=== PATIENT | female | born 1990 | race Hispanic/Latino ===

== ENCOUNTER 2017-07-25 11:51 | Emergency (ER) | payer SELFPAY ==
[2017-07-25 12:48] LABS: Urine Blood TRACE (NEG); Urine Glucose NEGATIVE (NEG); Urine Protein NEGATIVE (NEG); Urine Specific Gravity >1.030 (1.005-1.030)
[2017-07-25 13:20] LABS: Urine Bacteria <20 /HPF (<20); Urine Culture Reflex Order NOT NEEDED; Urine Mucus 1+ /HPF (NONE SEEN); Urine RBC <5 /HPF (NONE SEEN)
[2017-07-25 13:32] LABS: Absolute Lymphocytes (CBC) 2.3 K/uL (0.7-4.9); Absolute Monocytes 0.6 K/uL (0.1-1.3); Basophils % 0.9 % (0-1.3); Hematocrit 36.7 % (36.0-45.0); Lymphocytes % 24.5 % (15.3-44.8); MCH 27.6 pg (27.0-35.0); MCV 83.8 fL (80-100); MPV 8.5 fL (7.6-11.3); Monocytes % 6.3 % (3.3-12.3); RBC Red Blood Cell Count 4.39 M/uL (3.86-4.86)
[2017-07-25 13:40] LABS: Bicarbonate 30 mEq/L (21-31); Glucose Level 91 mg/dL (65-120); Lipase 15 U/L (22-51); Potassium 3.7 mEq/L (3.6-5.0); Sodium Level 139 mEq/L (135-145)
[2017-07-25 13:46] LABS: ALT/SGPT 12 IU/L (10-60); AST/SGOT 17 IU/L (10-42); Albumin 3.9 g/dL (3.2-5.5); Alkaline Phosphatase 71 IU/L (42-121); Amylase Level 50 U/L (28-100); BUN Blood Urea Nitrogen 17 mg/dL (6-20); Bilirubin Direct 0.3 mg/dL (0-0.2); Bilirubin Total 2.1 mg/dL (0.3-1.2); Protein, Total 7.1 g/dL (6.0-8.3)
--- NOTE | 2017-07-25 14:50 | RAD REPORT ---
EXAM DESCRIPTION: US - Transvaginal Study Probe - 07/25/2017 2:37 pm CLINICAL HISTORY: Pelvic pain. COMPARISON: 04/05/2016 FINDINGS: The uterus is normal in size, shape and echotexture. The uterus measures 7.0 x 5.0 x 3.9 c m. The endometrial stripe measures 4 mm, normal. Both ovaries are normal in size, shape and echotexture. The right ovary measures 3.3 x 2.1 x 1.7 cm. The left ovary measures 3.5 x 2.1 x 1.8 cm. No ovarian or parovarian lesions. No adnexal masses. Normal Doppler blood flow was demonstrated to both ovaries. IMPRESSION: Unremarkable study.
--- NOTE | 2017-07-25 15:09 | EDPHYS ---
Physician Documentation [facility] Name: Angela Trinidad Age: 26 yrs Sex: Female : 1990 Arrival Date: 07/25/2017 Time: 11:52 Bed 18 Private MD: ED Physician Kory Granados HPI: 07/25 12:58 This 26 yrs old Female presents to ER via Ambulatory with complaints of cp Vaginal Discharge, Pelvic Pain, Vomiting/Diarrhea. 12:58 The patient presents with pelvic pain, that is located in/on the suprapubic area, cp vaginal discharge, that is white discharge. 12:58 Onset: The symptoms/episode began/occurred gradually. Associated signs and symptoms: cp Pertinent positives: diarrhea, vomiting, Pertinent negatives: fever, hematuria. 12:58 The patient is sexually active, reportedly has a single partner. The patient's method cp of control includes nothing. 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 - Social history:: Smoking status: Patient uses tobacco products, smokes one-half pack cigarettes per day. ROS: 13:05 Positive for vaginal discharge, Negative for urinary symptoms, vaginal bleeding. cp 13:05 Eyes: Negative for injury, pain, redness, and discharge, ENT: Negative for injury, cp pain, and discharge. 13:05 Constitutional: Negative for body aches, chills, fever, poor PO intake. 13:05 Cardiovascular: Negative for chest pain, edema, palpitations. 13:05 Respiratory: Negative for cough, shortness of breath, wheezing. 13:05 Abdomen/GI: Positive for abdominal pain, vomiting, diarrhea, of the lower abdomen, Negative for constipation, anorexia, black/tarry stool, rectal bleeding. 13:05 Back: Negative for pain at rest, pain with movement, radiated pain. 13:05 Skin: Negative for cellulitis, rash. 13:05 Neuro: Negative for altered mental status, headache, weakness. 13:05 All other systems are negative. Exam: 14:04 Head/Face: Normocephalic, atraumatic. cp 14:04 Constitutional: The patient appears in no acute distress, alert, awake, non-toxic, well developed, well nourished. 14:04 Eyes: Periorbital structures: appear normal, Conjunctiva: normal, no exudate, no injection, Lids and lashes: appear normal, bilaterally. 14:04 ENT: External ear(s): are unremarkable, Nose: is normal, Mouth: Lips: moist, Oral mucosa: pink and intact, moist, Posterior pharynx: is normal, airway is patent, no erythema, no exudate. 14:04 Chest/axilla: Inspection: normal, Palpation: is normal, no crepitus, no tenderness. 14:04 Cardiovascular: Rate: normal, Rhythm: regular. 14:04 Respiratory: the patient does not display signs of respiratory distress, Respirations: normal, no use of accessory muscles, no retractions, no splinting, no tachypnea, labored breathing, is not present, Breath sounds: are clear throughout, no decreased breath sounds, no stridor, no wheezing. 14:04 Abdomen/GI: Inspection: abdomen appears normal, Bowel sounds: active, all quadrants, Palpation: soft, in all quadrants, mild abdominal tenderness, in the right lower quadrant and left lower quadrant, rebound tenderness, is not appreciated, voluntary guarding, is not appreciated, involuntary guarding, is not appreciated. 14:04 : CVA tenderness, is absent, Pelvic Exam: External exam: is normal, Speculum exam: no bleeding is noted, no cervicitis, os that is closed, bimanual exam reveals cervical motion tenderness, no adnexal tenderness on left, right adnexal tenderness, no adnexal mass on right, no adnexal mass on left, discharge, white, Jeane, tech. Sexual behavior: the patient is sexually active, and reports a single partner. 14:04 Skin: cellulitis, is not appreciated, no rash present. Vital Signs: 12:05 BP 101 / 71; Pulse 72; Resp 14; Temp 98.5(TE); Pulse Ox 98% on R/A; Weight 54.43 kg lk1 (R); Height 5 ft. 0 in. (152.40 cm) (R); Pain 7/10; 13:00 BP 100 / 69; Pulse 71; Resp 18; Pulse Ox 99% on R/A; Pain 2/10; em 14:43 BP 123 / 81; Pulse 92; Resp 15; Pulse Ox 96% on R/A; mh5 15:24 BP 105 / 72; Pulse 86; Resp 18; Pulse Ox 99% on R/A; em 12:05 Body Mass Index 23.44 (54.43 kg, 152.40 cm) lk1 MDM: 12:07 Patient medically screened. cp 13:00 Differential diagnosis: dysmenorrhea, ectopic , endometriosis, ovarian cyst, cp pelvic inflammatory disease, ruptured ectopic . 15:05 Data reviewed: vital signs, nurses notes, lab test result(s), radiologic studies, cp ultrasound, and as a result, I will discharge patient. 15:05 Counseling: I had a detailed discussion with the patient and/or guardian regarding: the cp historical points, exam findings, and any diagnostic results supporting the discharge/admit diagnosis, lab results, radiology results, the need for outpatient follow up, an OB/Gyne specialist, to return to the emergency department if symptoms worsen or persist or if there are any questions or concerns that arise at home. 15:05 Special discussion: Based on the patient's Hx, exam, and Dx evaluation, there is no cp indication for emergent surgery or inpatient Tx. It is understood by the patient/guardian that if the Sx's persist or worsen they need to return immediately for re-evaluation. 07/25 12:40 Order name: Urine Dipstick--Ancillary (enter results); Complete Time: 12:49 bd 07/25 12:49 Interpretation: Normal except: UBLD TRACE; UESTR TRACE. cp 07/25 12:40 Order name: Urine --Ancillary (enter results); Complete Time: 12:49 bd 07/25 12:50 Interpretation: Reviewed. cp 07/25 12:58 Order name: Amylase, Serum; Complete Time: 14:07 cp 07/25 12:58 Order name: Basic Metabolic Panel; Complete Time: 14:07 cp 07/25 14:08 Interpretation: Normal except: GFR 79. cp 07/25 12:58 Order name: CBC with Diff; Complete Time: 13:39 cp 07/25 12:58 Order name: Creatinine for Radiology; Complete Time: 14:07 cp 07/25 12:58 Order name: Hepatic Function; Complete Time: 14:07 cp 07/25 12:58 Order name: Lipase; Complete Time: 14:07 cp 07/25 12:58 Order name: Urine Microscopic Only; Complete Time: 13:39 cp 07/25 12:58 Order name: Test, Serum; Complete Time: 14:07 cp 07/25 12:58 Order name: GC (GONORR/CHLAMYDIA) Probe cp 07/25 12:58 Order name: Wet Prep; Complete Time: 14:52 cp 07/25 14:09 Order name: US Transvaginal Study (Probe); Complete Time: 14:52 cp 07/25 12:58 Order name: IV Saline Lock; Complete Time: 13:31 cp 07/25 12:58 Order name: Labs collected and sent; Complete Time: 13:31 cp 07/25 12:58 Order name: Pelvic Exam Setup; Complete Time: 13:31 cp Administered Medications: 15:24 Drug: Rocephin (cefTRIAXone) 250 mg Route: IM; Site: right deltoid; em 15:43 Follow up: Response: No adverse reaction em 15:24 Drug: Zithromax 1 grams Route: PO; em 15:43 Follow up: Response: No adverse reaction em Disposition: 07/26 13:24 Co-signature as Attending Physician, Kory Granados MD. Disposition: 07/25/17 15:09 Discharged to Home. Impression: Abdominal and pelvic pain. - Condition is Stable. - Discharge Instructions: Pelvic Pain, Female, Abdominal Pain, Women. - Prescriptions for Ibuprofen 800 mg Oral Tablet - take 1 tablet by ORAL route every 8 hours As needed take with food; 30 tablet. Doxycycline Hyclate 100 mg Oral Tablet - take 1 tablet by ORAL route every 12 hours; 20 tablet. Metronidazole 500 mg Oral Tablet - take 1 tablet by ORAL route every 8 hours; 30 tablet. - Work release form, Medication Reconciliation Form, Thank You Letter, Antibiotic Education, Prescription Opioid Use form. - Follow up: Angel Sevilla MD; When: 1 week; Reason: Recheck today's complaints. - Problem is new. - Symptoms have improved. Signatures: Dispatcher [employer] EDMS Christopher Chawla, DANCE COSTUME DESIGNER DANCE COSTUME DESIGNER em Santino Solis, PA PA cp Cindy Doss, RN RN lk1 Kory Granados MD MD Corrections: (The following items were deleted from the chart) 10:55 04/01 13:05 Constitutional: Negative for body aches, chills, fever, poor PO intake, cp cp 07/26 13:05 Eyes: Negative for injury, pain, redness, and discharge, cp cp
--- NOTE | 2017-07-25 15:09 | ER ---
Nurse's Notes [facility] Name: Angela Trinidad Age: 26 yrs Sex: Female : 1990 Arrival Date: 07/25/2017 Time: 11:52 Bed 18 Private MD: Diagnosis: Abdominal and pelvic pain Presentation: 07/25 12:03 Presenting complaint: Patient states: "I have been having really bad abdominal pain lk1 where I had my . I am 11 days late on my period, but I had 2 negative tests. I have vomiting and diarrhea and a weird vaginal discharge that I have never seen before.". Transition of care: patient was not received from another setting of care. Onset of symptoms was July 14, 2017. Care prior to arrival: None. 12:03 Method Of Arrival: Ambulatory lk1 12:03 Acuity: MAYELIN 3 lk1 Triage Assessment: 12:05 General: Appears in no apparent distress. Behavior is calm, cooperative, appropriate lk1 for age. Pain: Complains of pain in suprapubic area Pain currently is 7 out of 10 on a pain scale. GI: Reports diarrhea, nausea, vomiting. 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 - Social history:: Smoking status: Patient uses tobacco products, smokes one-half pack cigarettes per day. Screenin:35 Abuse screen: Denies threats or abuse. Nutritional screening: No deficits noted. em Tuberculosis screening: No symptoms or risk factors identified. Fall Risk None identified. Assessment: 12:32 General: Appears in no apparent distress. comfortable, Behavior is calm, cooperative. em Pain: Complains of pain in suprapubic area Pain currently is 6 out of 10 on a pain scale. Quality of pain is described as crampy, Pain began. Neuro: Level of Consciousness is awake, alert, obeys commands, Oriented to person, place, time, situation. Cardiovascular: Capillary refill < 3 seconds Patient's skin is warm and dry. Respiratory: Airway is patent Respiratory effort is even, unlabored, Respiratory pattern is regular, symmetrical. GI: Abdomen is flat, Bowel sounds present X 4 quads. Reports bloating, cramping, diarrhea, nausea, vomiting. : No signs and/or symptoms were reported regarding the genitourinary system. EENT: No signs and/or symptoms were reported regarding the EENT system. Derm: Skin is intact, Skin is pink, warm \\T\\ dry. Musculoskeletal: Range of motion: intact in all extremities. 12:35 General: The previous assessment is accurate, call light remains within reach. . ss 13:30 Reassessment: Patient appears in no apparent distress at this time. Patient and/or em family updated on plan of care and expected duration. Pain level reassessed. Patient is alert, oriented x 3, equal unlabored respirations, skin warm/dry/pink. 14:59 Reassessment: Patient appears in no apparent distress at this time. Patient and/or em family updated on plan of care and expected duration. Pain level reassessed. Patient is alert, oriented x 3, equal unlabored respirations, skin warm/dry/pink. Vital Signs: 12:05 BP 101 / 71; Pulse 72; Resp 14; Temp 98.5(TE); Pulse Ox 98% on R/A; Weight 54.43 kg lk1 (R); Height 5 ft. 0 in. (152.40 cm) (R); Pain 7/10; 13:00 BP 100 / 69; Pulse 71; Resp 18; Pulse Ox 99% on R/A; Pain 2/10; em 14:43 BP 123 / 81; Pulse 92; Resp 15; Pulse Ox 96% on R/A; mh5 15:24 BP 105 / 72; Pulse 86; Resp 18; Pulse Ox 99% on R/A; em 12:05 Body Mass Index 23.44 (54.43 kg, 152.40 cm) lk1 ED Course: 11:52 Patient arrived in ED. as 12:04 Triage completed. lk1 12:06 Arm band placed on left wrist. lk1 12:07 Santino Solis PA is PHCP. cp 12:07 Kory Granados MD is Attending Physician. cp 12:18 Christopher Chawla LVN is Primary Nurse. em 12:38 Urine collected: clean catch specimen, clear. 5 12:47 Urine --Ancillary (enter results) Sent. mh5 12:47 Urine Dipstick--Ancillary (enter results) Sent. [facility] 13:35 Patient has correct armband on for positive identification. Placed in gown. Bed in low em position. Call light in reach. Side rails up X2. 13:35 No provider procedures requiring assistance completed. em 14:21 Patient taken to ultrasound. lc3 14:38 US Transvaginal Study (Probe) In Process Unspecified. EDMS 14:41 Assist provider with pelvic exam: Set up pelvic tray. Specimens sent to lab. Patient 5 tolerated well. 14:42 Initial lab(s) drawn, by me, sent to lab. Inserted saline lock: 22 gauge in right [facility] antecubital area, using aseptic technique. Blood collected. 15:08 Angel Sevilla MD is Referral Physician. cp 15:42 IV discontinued, intact, bleeding controlled, No redness/swelling at site. Pressure em dressing applied. Administered Medications: 15:24 Drug: Rocephin (cefTRIAXone) 250 mg Route: IM; Site: right deltoid; em 15:43 Follow up: Response: No adverse reaction em 15:24 Drug: Zithromax 1 grams Route: PO; em 15:43 Follow up: Response: No adverse reaction em Outcome: 15:09 Discharge ordered by MD. cp 15:42 Discharged to home ambulatory. em 15:42 Condition: good 15:42 Discharge instructions given to patient, Instructed on discharge instructions, follow up and referral plans. medication usage, Demonstrated understanding of instructions, follow-up care, medications, Prescriptions given X 3. 15:43 Patient left the ED. em Signatures: Dispatcher [employer] EDNM Christopher Chawla, RECOVERY ROOM RN RECOVERY ROOM RN em Komal Aparicio Shelby, RN RN Santino Pacheco PA PA cp Alexa Witt Leah, RN RN lk1 Dania Aparicio [facility] Corrections: (The following items were deleted from the chart) 14:59 13:30 Reassessment: Patient appears in no apparent distress at this time. Patient is em alert, oriented x 3, equal unlabored respirations, skin warm/dry/pink. Patient is alert/active/playful, equal unlabored respirations, skin warm/dry/pink. em
[2017-07-25] MEDS ORDERED: AZITHROMYCIN 250 MG TAB ONE (15:29)
[2017-07-25] MEDS ORDERED: CEFTRIAXONE 250 MG/VIAL ONE (15:30)
[2017-07-25 15:49] VITALS: TEMP 98.5
[2017-07-25 15:52] VITALS: BP 105/72; O2SAT 99
[2017-07-27 06:49] LABS: C.trachomatis RNA,TMA Not Detected (Not Detected)
== END 2017-07-25 15:43 | disposition home or self-care (01) ==
LOC: ER 11:51
DX: R10.2 Pelvic and perineal pain (principal); F17.210 Nicotine dependence, cigarettes, uncomplicated; Z88.8 Allergy status to other drugs, medicaments and biological substances
CPT/HCPCS: 36415; 76830; 80048; 80076; 81003; 81015; 81025; 82150; 83690; 84703; 85025; 87210; 87490; 87590; 96372; 99284; J0696

== ENCOUNTER 2017-08-27 15:28 | Emergency (ER) | payer OTHER, SELFPAY ==
[2017-08-27 16:28] LABS: Urine Blood TRACE (NEG); Urine Glucose NEGATIVE (NEG); Urine Protein 3+ (NEG); Urine Specific Gravity 1.025 (1.005-1.030)
[2017-08-27 16:45] LABS: Potassium 4.1 mEq/L (3.6-5.0)
[2017-08-27 16:46] LABS: Absolute Lymphocytes (CBC) 2.4 K/uL (0.7-4.9); Absolute Monocytes 0.9 K/uL (0.1-1.3); Absolute Neutrophil 9.1 K/uL (1.8-8.0); Basophils % 0.6 % (0-1.3); Eosinophils % 2.2 % (0-4.4); Hematocrit 38.4 % (36.0-45.0); Lymphocytes % 18.7 % (15.3-44.8); MCH 27.5 pg (27.0-35.0); MCV 83.7 fL (80-100); MPV 8.5 fL (7.6-11.3); Monocytes % 7.4 % (3.3-12.3); RBC Red Blood Cell Count 4.59 M/uL (3.86-4.86)
[2017-08-27] MEDS ORDERED: NA CHLORIDE 0.9% 1,000 ML ONE (16:48)
--- NOTE | 2017-08-27 17:28 | RAD REPORT ---
EXAM DESCRIPTION: US - Transvaginal Study Probe - 08/27/2017 5:14 pm CLINICAL HISTORY: Pelvic pain COMPARISON: none FINDINGS: The uterus measures 8 x 4 x 4 cm. A fibroid is not seen. The endometrial stripe measures 9 millimeters. Nabothian cysts are present within the cervix. The ovaries are normal in size and echotexture. No significant free fluid is seen. IMPRESSION: Unremarkable pelvic ultrasound
--- NOTE | 2017-08-27 17:35 | ER ---
Nurse's Notes [facility] Name: Angela Trinidad Age: 26 yrs Sex: Female : 1990 Arrival Date: 08/27/2017 Time: 15:30 Bed 28 Private MD: Diagnosis: Urinary tract infection, site not specified Presentation: 08/27 15:35 Presenting complaint: Patient states: suprapubic cramping and white vaginal discharge x ss 4 weeks. "I'm 49 days late for my period, and I've been having mood swings, but all the tests I've taken are negative or they just don't say anything.". Transition of care: patient was not received from another setting of care. Onset of symptoms was July 30, 2017. Initial Sepsis Screen: Does the patient meet any 2 criteria? No. Patient's initial sepsis screen is negative. Does the patient have a suspected source of infection? No. Patient's initial sepsis screen is negative. Care prior to arrival: None. 15:35 Method Of Arrival: Ambulatory ss 15:35 Acuity: MAYELIN 3 ss SIDEHAND: 15:38 LMP 06/19/2017 ss Historical: - Allergies: 15:38 Bentyl; ss - PMHx: 15:38 Anemia; Anxiety; hypotension; drug use when teenager; ss - PSHx: 15:38 Cholecystectomy; ; ss - Immunization history:: Adult Immunizations up to date. - Social history:: Smoking status: Patient uses tobacco products, smokes one-half pack cigarettes per day. Screenin:45 Abuse screen: Denies threats or abuse. Nutritional screening: No deficits noted. tl3 Tuberculosis screening: No symptoms or risk factors identified. Fall Risk None identified. Assessment: 15:45 Reassessment: pt reports that last cycle was 45 days ago, her breast are tender and she tl3 has a mucus discharge. General: Appears in no apparent distress. comfortable, well groomed, well developed, well nourished, Behavior is calm, cooperative, appropriate for age. Pain: Complains of pain in suprapubic area. Neuro: No deficits noted. Level of Consciousness is awake, alert, obeys commands, Oriented to person, place, time, situation, Appropriate for age. Cardiovascular: No deficits noted. Heart tones S1 S2 present Capillary refill < 3 seconds in bilateral fingers. Respiratory: Airway is patent Trachea midline Respiratory effort is even, unlabored, Respiratory pattern is regular, symmetrical, Breath sounds are clear bilaterally. GI: Bowel sounds present X 4 quads. Abd is soft and non tender. : No signs and/or symptoms were reported regarding the genitourinary system. EENT: No signs and/or symptoms were reported regarding the EENT system. Derm: No signs and/or symptoms reported regarding the dermatologic system. Musculoskeletal: No signs and/or symptoms reported regarding the musculoskeletal system. Vital Signs: 15:38 BP 110 / 75; Pulse 89; Resp 14; Temp 98.6(TE); Pulse Ox 99% on R/A; Weight 54.43 kg; ss Height 4 ft. 11 in. (149.86 cm); Pain 5/10; 18:02 BP 108 / 74; Pulse 68; Resp 16; Pulse Ox 100% on R/A; tl3 15:38 Body Mass Index 24.24 (54.43 kg, 149.86 cm) ss ED Course: 15:30 Patient arrived in ED. sb2 15:33 Maria Elena Tenorio FNP-C is PHCP. kb 15:33 Delgado Parker MD is Attending Physician. kb 15:37 Triage completed. ss 15:38 Arm band placed on right wrist. ss 15:45 Patient has correct armband on for positive identification. Bed in low position. tl3 15:45 No provider procedures requiring assistance completed. Inserted saline lock: 22 gauge tl3 in right antecubital area, using aseptic technique. 16:17 Ese Morales, RN is Primary Nurse. tl3 16:58 Ultrasound completed. Patient tolerated well. sg3 17:14 US Transvaginal Study (Probe) In Process Unspecified. EDMS 18:02 IV discontinued, intact, bleeding controlled, No redness/swelling at site. Pressure tl3 dressing applied. Administered Medications: 17:19 Drug: NS 0.9% 1000 ml Route: IV; Rate: 1000 ml; Site: right antecubital; Delivery: tl3 Primary tubing; 18:01 Follow up: IV Status: Completed infusion; IV Intake: 1000ml tl3 18:00 Drug: Macrobid 100 mg Route: PO; tl3 18:00 Follow up: Response: No adverse reaction; Medication administered at discharge. tl3 Intake: 18:01 IV: 1000ml; Total: 1000ml. tl3 Outcome: 17:35 Discharge ordered by MD. [place] 18:02 Discharged to home ambulatory. tl3 18:02 Condition: good 18:02 Discharge instructions given to patient, Instructed on discharge instructions, follow up and referral plans. medication usage, Demonstrated understanding of instructions, follow-up care, medications, Prescriptions given X 1, stressed fluid intake, follow up with PCP, return to ED with any worsening S/S 18:03 Patient left the ED. tl3 Signatures: Dispatcher [employer] EDMS Maria Elena Tenorio, HYDROLOGY PROFESSOR-C HYDROLOGY PROFESSOR-Carolyn Banks, RN RN Maricruz Tirado 3 Jesenia Hung2 Ese Morales, RN RN tl3
--- NOTE | 2017-08-27 17:35 | EDPHYS ---
Physician Documentation [facility] Name: Angela Trinidad Age: 26 yrs Sex: Female : 1990 Arrival Date: 08/27/2017 Time: 15:30 Bed 28 Private MD: ED Physician Delgado Parker HPI: 08/27 15:53 This 26 yrs old Female presents to ER via Ambulatory with complaints of kb Abdominal Pain, LMP 06/19/17. 15:53 The patient presents with abdominal pain in the lower abdomen. Onset: The kb symptoms/episode began/occurred 4 week(s) ago. The symptoms do not radiate. Associated signs and symptoms: Pertinent positives: vaginal discharge. The symptoms are described as crampy. Modifying factors: The symptoms are alleviated by nothing, the symptoms are aggravated by pressure. Severity of pain: At its worst the pain was mild moderate in the emergency department the pain is unchanged. The patient has not experienced similar symptoms in the past. The patient has been recently seen at the [facility] Emergency Department, a couple of weeks ago, for similar complaints labs were performed, an ultrasound was performed. 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 - Social history:: Smoking status: Patient uses tobacco products, smokes one-half pack cigarettes per day. ROS: 15:55 Constitutional: Negative for fever, chills, and weight loss, ENT: Negative for injury, kb pain, and discharge, Neck: Negative for injury, pain, and swelling, Cardiovascular: Negative for chest pain, palpitations, and edema, Respiratory: Negative for shortness of breath, cough, wheezing, and pleuritic chest pain, Back: Negative for injury and pain, MS/Extremity: Negative for injury and deformity, Skin: Negative for injury, rash, and discoloration, Neuro: Negative for headache, weakness, numbness, tingling, and seizure. 15:55 Abdomen/GI: Positive for abdominal pain. 15:55 : Positive for vaginal discharge. Exam: 15:54 Constitutional: This is a well developed, well nourished patient who is awake, alert, kb and in no acute distress. Head/Face: Normocephalic, atraumatic. ENT: Nares patent. No nasal discharge, no septal abnormalities noted. Tympanic membranes are normal and external auditory canals are clear. Oropharynx with no redness, swelling, or masses, exudates, or evidence of obstruction, uvula midline. Mucous membranes moist. Neck: Trachea midline, no thyromegaly or masses palpated, and no cervical lymphadenopathy. Supple, full range of motion without nuchal rigidity, or vertebral point tenderness. No Meningismus. Chest/axilla: Normal chest wall appearance and motion. Nontender with no deformity. No lesions are appreciated. Cardiovascular: Regular rate and rhythm with a normal S1 and S2. No gallops, murmurs, or rubs. Normal PMI, no JVD. No pulse deficits. Respiratory: Lungs have equal breath sounds bilaterally, clear to auscultation and percussion. No rales, rhonchi or wheezes noted. No increased work of breathing, no retractions or nasal flaring. Skin: Warm, dry with normal turgor. Normal color with no rashes, no lesions, and no evidence of cellulitis. MS/ Extremity: Pulses equal, no cyanosis. Neurovascular intact. Full, normal range of motion. Neuro: Awake and alert, GCS 15, oriented to person, place, time, and situation. Cranial nerves II-XII grossly intact. Motor strength 5/5 in all extremities. Sensory grossly intact. Cerebellar exam normal. Normal gait. 15:54 Abdomen/GI: Inspection: abdomen appears normal, Bowel sounds: normal, in all quadrants, Palpation: soft, in all quadrants, mild abdominal tenderness, in the suprapubic area, right lower quadrant and left lower quadrant. Vital Signs: 15:38 BP 110 / 75; Pulse 89; Resp 14; Temp 98.6(TE); Pulse Ox 99% on R/A; Weight 54.43 kg; ss Height 4 ft. 11 in. (149.86 cm); Pain 5/10; 18:02 BP 108 / 74; Pulse 68; Resp 16; Pulse Ox 100% on R/A; tl3 15:38 Body Mass Index 24.24 (54.43 kg, 149.86 cm) MDM: 15:38 Patient medically screened. kb 15:55 Data reviewed: vital signs, nurses notes. Data interpreted: Pulse oximetry: on room air kb is 99 %. Interpretation: normal. 17:35 Counseling: I had a detailed discussion with the patient and/or guardian regarding: the kb historical points, exam findings, and any diagnostic results supporting the discharge/admit diagnosis, lab results, radiology results, the need for outpatient follow up, an OB/Gyne specialist, to return to the emergency department if symptoms worsen or persist or if there are any questions or concerns that arise at home. 08/27 15:38 Order name: CBC with Diff; Complete Time: 16:49 kb 08/27 15:38 Order name: Basic Metabolic Panel; Complete Time: 16:49 kb 08/27 16:18 Order name: Urine Dipstick--Ancillary (enter results); Complete Time: 16:29 eb 08/27 16:18 Order name: Urine --Ancillary (enter results); Complete Time: 16:29 eb 08/27 16:30 Order name: US Transvaginal Study (Probe); Complete Time: 17:34 kb 08/27 15:38 Order name: Urine Test (obtain specimen); Complete Time: 16:18 kb 08/27 15:38 Order name: Urine Dipstick-Ancillary (obtain specimen); Complete Time: 16:18 kb Administered Medications: 17:19 Drug: NS 0.9% 1000 ml Route: IV; Rate: 1000 ml; Site: right antecubital; Delivery: tl3 Primary tubing; 18:01 Follow up: IV Status: Completed infusion; IV Intake: 1000ml tl3 18:00 Drug: Macrobid 100 mg Route: PO; tl3 18:00 Follow up: Response: No adverse reaction; Medication administered at discharge. tl3 Disposition: 18:13 Co-signature as Attending Physician, Delgado Parker MD. rn Disposition: 08/27/17 17:35 Discharged to Home. Impression: Urinary tract infection, site not specified. - Condition is Stable. - Discharge Instructions: Urinary Tract Infection, [id number]. - Prescriptions for Macrobid 100 mg Oral Capsule - take 1 capsule by ORAL route every 12 hours for 7 days; 14 capsule. - Medication Reconciliation Form, Thank You Letter, Antibiotic Education, Prescription Opioid Use form. - Follow up: Emergency Department; When: As needed; Reason: Worsening of condition. Follow up: Private Physician; When: 2 - 3 days; Reason: Recheck today's complaints, Continuance of care, Re-evaluation by your physician. Signatures: Dispatcher [employer] EDMaria Elena Pond, ANA HEADLEY-Delgado Astorga MD MD rn Smirch, Shelby, RN RN ss Lowrey, Tammy, RN RN tl3 Corrections: (The following items were deleted from the chart) 18:03 17:35 08/27/2017 17:35 Discharged to Home. Impression: Urinary tract infection, site tl3 not specified. Condition is Stable. Forms are Medication Reconciliation Form, Thank You Letter, Antibiotic Education, Prescription Opioid Use. Follow up: Emergency Department; When: As needed; Reason: Worsening of condition. Follow up: Private Physician; When: 2 - 3 days; Reason: Recheck today's complaints, Continuance of care, Re-evaluation by your physician. kb
[2017-08-27] MEDS ORDERED: NITROFURAN MACRO 100 MG CAP PO ONE (17:55)
[2017-08-27 18:08] VITALS: TEMP 98.6
[2017-08-27 18:09] VITALS: BP 108/74; O2SAT 100
== END 2017-08-27 18:03 | disposition home or self-care (01) ==
LOC: ER 15:28
DX: N39.0 Urinary tract infection, site not specified (principal); F17.210 Nicotine dependence, cigarettes, uncomplicated; Z88.8 Allergy status to other drugs, medicaments and biological substances
CPT/HCPCS: 36415; 76830; 80048; 81003; 81025; 85025; 96360; 99284; J7030

== ENCOUNTER 2017-11-07 21:07 | Emergency (ER) | payer OTHER ==
[2017-11-07 21:32] LABS: Urine Specific Gravity 1.025 (1.005-1.030)
[2017-11-07 21:33] LABS: Urine Blood NEGATIVE (NEG); Urine Glucose NEGATIVE (NEG); Urine Protein NEGATIVE (NEG); Urine Specific Gravity 1.025 (1.005-1.030)
[2017-11-07 22:09] LABS: Absolute Lymphocytes (CBC) 2.2 K/uL (0.7-4.9); Absolute Monocytes 0.6 K/uL (0.1-1.3); Absolute Neutrophil 7.5 K/uL (1.8-8.0); Basophils % 0.4 % (0-1.3); Eosinophils % 0.7 % (0-4.4); Hematocrit 34.6 % (36.0-45.0); Lymphocytes % 21.2 % (15.3-44.8); MCH 28.9 pg (27.0-35.0); MPV 8.2 fL (7.6-11.3); Monocytes % 5.7 % (3.3-12.3); RBC Red Blood Cell Count 4.16 M/uL (3.86-4.86)
[2017-11-07 22:28] LABS: BUN Blood Urea Nitrogen 7 mg/dL (7-18); Bicarbonate 28 mmol/L (21-32); Glucose Level 89 mg/dL (74-106); Potassium 3.5 mmol/L (3.5-5.1); Sodium Level 140 mmol/L (136-145)
[2017-11-07 22:32] LABS: Urine Mucus 3+ /HPF (NONE SEEN)
[2017-11-07] MEDS ORDERED: ACETAMINOPHEN 500 MG TAB ONE (22:32)
[2017-11-07 22:36] LABS: Urine Amorphous Sediment 2+ /HPF (NONE SEEN); Urine Bacteria <20 /HPF (<20); Urine Culture Reflex Order NOT NEEDED; Urine RBC <5 /HPF (NONE SEEN)
[2017-11-07 22:40] LABS: HCG, Quantitative 29100 mIU/mL (1-3)
--- NOTE | 2017-11-07 23:15 | EDPHYS ---
Physician Documentation [facility] Name: Angela Trinidad Age: 27 yrs Sex: Female : 1990 Arrival Date: 11/07/2017 Time: 21:08 Bed 25 Private MD: ED Physician Lam Clark HPI: 11/07 22:00 This 27 yrs old Female presents to ER via Ambulatory with complaints of pm1 Vaginal Bleeding - 3Months Preg. 22:00 The patient presents with vaginal bleeding that is spotting. Onset: The pm1 symptoms/episode began/occurred 2 month(s) ago. Modifying factors: The symptoms are alleviated by nothing, the symptoms are aggravated by nothing. Associated signs and symptoms: Pertinent positives: cramping, vaginal bleeding, Pertinent negatives: diarrhea, dysuria, fever, nausea, vaginal discharge, vomiting. Severity of symptoms: in the emergency department the symptoms are unchanged. Onset: The symptoms/episode began/occurred. The patient has been recently seen by a physician: Patient with ultrasound by Dr. Morfin 1 week ago. Patient reports on and off vaginal spotting for the past 2 months. 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 - Social history:: Smoking status: Patient/guardian denies using tobacco, Patient/guardian denies using alcohol, street drugs, IV drugs. - Ebola Screening: : No symptoms or risks identified at this time. ROS: 22:00 Positive for vaginal bleeding, Negative for burning with urination, vaginal pm1 discharge. 22:00 Constitutional: Negative for fever, chills, and weight loss, Eyes: Negative for injury, pain, redness, and discharge, ENT: Negative for injury, pain, and discharge, Neck: Negative for injury, pain, and swelling, Cardiovascular: Negative for chest pain, palpitations, and edema, Respiratory: Negative for shortness of breath, cough, wheezing, and pleuritic chest pain, Back: Negative for injury and pain. 22:00 : Negative for injury, bleeding, discharge, and swelling, MS/Extremity: Negative for injury and deformity, Skin: Negative for injury, rash, and discoloration, Neuro: Negative for headache, weakness, numbness, tingling, and seizure. 22:00 Abdomen/GI: Positive for abdominal cramps, Negative for abdominal pain, nausea, vomiting, and diarrhea. Exam: 22:00 Constitutional: This is a well developed, well nourished patient who is awake, alert, pm1 and in no acute distress. Head/Face: Normocephalic, atraumatic. Eyes: Pupils equal round and reactive to light, extra-ocular motions intact. Lids and lashes normal. Conjunctiva and sclera are non-icteric and not injected. Cornea within normal limits. Periorbital areas with no swelling, redness, or edema. ENT: Nares patent. No nasal discharge, no septal abnormalities noted. Tympanic membranes are normal and external auditory canals are clear. Oropharynx with no redness, swelling, or masses, exudates, or evidence of obstruction, uvula midline. Mucous membranes moist. Neck: Trachea midline, no thyromegaly or masses palpated, and no cervical lymphadenopathy. Supple, full range of motion without nuchal rigidity, or vertebral point tenderness. No Meningismus. Chest/axilla: Normal chest wall appearance and motion. Nontender with no deformity. No lesions are appreciated. Cardiovascular: Regular rate and rhythm with a normal S1 and S2. No gallops, murmurs, or rubs. No pulse deficits. Respiratory: Lungs have equal breath sounds bilaterally, clear to auscultation and percussion. No rales, rhonchi or wheezes noted. No increased work of breathing, no retractions or nasal flaring. Abdomen/GI: Soft, non-tender, with normal bowel sounds. No distension or tympany. No guarding or rebound. No evidence of tenderness throughout. Back: No spinal tenderness. No costovertebral tenderness. Full range of motion. Skin: Warm, dry with normal turgor. Normal color with no rashes, no lesions, and no evidence of cellulitis. MS/ Extremity: Pulses equal, no cyanosis. Neurovascular intact. Full, normal range of motion. 22:00 Neuro: Orientation: is normal, Motor: is normal, moves all fours. Vital Signs: 21:27 BP 117 / 79; Pulse 88; Resp 18; Pulse Ox 100% on R/A; Weight 56.7 kg; Height 5 ft. 0 mg2 in. (152.40 cm); Pain 9/10; 22:04 BP 106 / 66; Pulse 85; Resp 18; Pulse Ox 100% on R/A; Pain 8/10; mg2 23:30 BP 107 / 77; Pulse 80; Resp 18; Pulse Ox 100% on R/A; Pain 0/10; mg2 21:27 Body Mass Index 24.41 (56.70 kg, 152.40 cm) mg2 MDM: 21:14 Patient medically screened. pm1 23:14 Data reviewed: vital signs. Data interpreted: Pulse oximetry: on room air is 100 %. pm1 Interpretation: normal. Counseling: I had a detailed discussion with the patient and/or guardian regarding: the historical points, exam findings, and any diagnostic results supporting the discharge/admit diagnosis, lab results, radiology results, the need for outpatient follow up, for definitive care, an OB/Gyne specialist, to return to the emergency department if symptoms worsen or persist or if there are any questions or concerns that arise at home. 11/07 21:18 Order name: Quantitative Hcg; Complete Time: 22:57 pm1 11/07 21:18 Order name: Abo/rh Typing; Complete Time: 22:32 pm1 11/07 21:18 Order name: Basic Metabolic Panel; Complete Time: 22:57 pm1 11/07 21:18 Order name: CBC with Diff; Complete Time: 22:32 pm1 11/07 21:19 Order name: Urine Microscopic Only; Complete Time: 22:57 pm1 11/07 21:25 Order name: Urine Dipstick--Ancillary (enter results); Complete Time: 21:41 rg2 11/07 21:18 Order name: Urine Test (obtain specimen); Complete Time: 21:30 pm1 11/07 21:18 Order name: IV Saline Lock; Complete Time: 21:55 pm1 11/07 21:18 Order name: Labs collected and sent; Complete Time: 21:55 pm1 11/07 21:18 Order name: NPO; Complete Time: 21:55 pm1 11/07 21:26 Order name: Urine --Ancillary (enter results); Complete Time: 21:41 rg2 11/07 21:45 Order name: 1St Trimest Single 1St Fetus EDAK 11/07 21:18 Order name: Urine Dipstick-Ancillary (obtain specimen); Complete Time: 21:30 pm1 Administered Medications: 23:22 Drug: Tylenol 500 mg Route: PO; mg2 23:28 Follow up: Response: No adverse reaction; Pain is decreased mg2 Disposition: 11/08 04:26 Co-signature as Attending Physician, Lam Clark MD. ma2 Disposition: 11/07/17 23:15 Discharged to Home. Impression: Threatened . - Condition is Stable. - Discharge Instructions: Threatened Miscarriage, Pelvic Rest. - Medication Reconciliation Form, Thank You Letter form. - Follow up: Emergency Department; When: As needed; Reason: Worsening of condition. Follow up: Private Physician; When: 2 - 3 days; Reason: Recheck today's complaints, Continuance of care, Re-evaluation by your physician. - Problem is new. - Symptoms have improved. Signatures: Dispatcher [employer] [facility] [place] Jagdeep Saba, DIESEL MAINTENANCE TECHNICIAN DIESEL MAINTENANCE TECHNICIAN pm1 Lam Clark MD MD ma2 Rudy Melgar, RN RN mg2 Corrections: (The following items were deleted from the chart) 11/07 21:45 21:19 Transvaginal Ob+US.RAD.BRZ ordered. [facility] 23:30 23:15 11/07/2017 23:15 Discharged to Home. Impression: Threatened . Condition mg2 is Stable. Forms are Medication Reconciliation Form, Thank You Letter, Antibiotic Education, Prescription Opioid Use. Follow up: Emergency Department; When: As needed; Reason: Worsening of condition. Follow up: Private Physician; When: 2 - 3 days; Reason: Recheck today's complaints, Continuance of care, Re-evaluation by your physician. Problem is new. Symptoms have improved. pm1
--- NOTE | 2017-11-07 23:15 | ER ---
Nurse's Notes [facility] Name: Angela Trinidad Age: 27 yrs Sex: Female : 1990 Arrival Date: 11/07/2017 Time: 21:08 Bed 25 Private MD: Diagnosis: Threatened Presentation: 11/07 21:24 Presenting complaint: Patient states: she is having on and off vaginal mg2 bleeding/spotting for 2 months already. also complains of abdominal and back pain with nausea and vomiting 3 times today. Transition of care: patient was not received from another setting of care. Onset of symptoms was October 2017. Risk Assessment: Do you want to hurt yourself or someone else? Patient reports no desire to harm self or others. Initial Sepsis Screen: Does the patient meet any 2 criteria? No. Patient's initial sepsis screen is negative. Does the patient have a suspected source of infection? No. Patient's initial sepsis screen is negative. Care prior to arrival: None. 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 - Social history:: Smoking status: Patient/guardian denies using tobacco, Patient/guardian denies using alcohol, street drugs, IV drugs. - Ebola Screening: : No symptoms or risks identified at this time. Screenin:34 Abuse screen: Denies threats or abuse. Denies injuries from another. Nutritional mg2 screening: No deficits noted. Tuberculosis screening: No symptoms or risk factors identified. Fall Risk None identified. Assessment: 21:35 General: Appears in no apparent distress. comfortable, Behavior is calm, cooperative. mg2 Pain: Complains of pain in back and abdomen Pain does not radiate. Pain currently is 9 out of 10 on a pain scale. Quality of pain is described as aching, Pain began today Is intermittent. Neuro: Level of Consciousness is awake, alert, obeys commands, Oriented to person, place, time. Cardiovascular: Capillary refill < 3 seconds Patient's skin is warm and dry. Respiratory: Airway is patent Respiratory effort is even, unlabored, Respiratory pattern is regular, symmetrical. GI: Reports lower abdominal pain, vomiting. EENT: No signs and/or symptoms were reported regarding the EENT system. Derm: Skin is intact, Skin is pink, warm \T\ dry. normal. Musculoskeletal: No signs and/or symptoms reported regarding the musculoskeletal system. Vital Signs: 21:27 BP 117 / 79; Pulse 88; Resp 18; Pulse Ox 100% on R/A; Weight 56.7 kg; Height 5 ft. 0 mg2 in. (152.40 cm); Pain 9/10; 22:04 BP 106 / 66; Pulse 85; Resp 18; Pulse Ox 100% on R/A; Pain 8/10; mg2 23:30 BP 107 / 77; Pulse 80; Resp 18; Pulse Ox 100% on R/A; Pain 0/10; mg2 21:27 Body Mass Index 24.41 (56.70 kg, 152.40 cm) mg2 ED Course: 21:08 Patient arrived in ED. ds1 21:14 Jagdeep Saba NP is PHCP. pm1 21:14 Lam Clark MD is Attending Physician. pm1 21:16 Rudy Melgar RN is Primary Nurse. mg2 21:26 Triage completed. mg2 21:28 Arm band placed on. mg2 21:45 1St Trimest Single 1St Fetus In Process Unspecified. EDMS 21:55 No provider procedures requiring assistance completed. Inserted saline lock: 20 gauge mg2 in left antecubital area, using aseptic technique. Blood collected. 23:28 IV discontinued, intact, bleeding controlled, No redness/swelling at site. Pressure mg2 dressing applied. 23:29 Patient has correct armband on for positive identification. Side rails up X 1. mg2 Administered Medications: 23:22 Drug: Tylenol 500 mg Route: PO; mg2 23:28 Follow up: Response: No adverse reaction; Pain is decreased mg2 Outcome: 23:15 Discharge ordered by . pm1 23:29 Discharged to home ambulatory, with family. mg2 23:29 Condition: stable 23:29 Discharge instructions given to patient, family, Instructed on discharge instructions, follow up and referral plans. Demonstrated understanding of instructions, follow-up care. 23:30 Patient left the ED. mg2 Signatures: Dispatcher [employer] EDNila Penn ds1 Jagdeep Saba, WIRE SAWYER WIRE SAWYER pm1 Rudy Melgar, RN RN mg2
[2017-11-07 23:33] VITALS: O2SAT 100
[2017-11-07 23:36] VITALS: BP 107/77
--- NOTE | 2017-11-08 08:11 | RAD REPORT ---
EXAM DESCRIPTION: US - 1St Trimest Single 1St Fetus - 11/07/2017 9:46 pm CLINICAL HISTORY: VAGINAL BLEEDING COMPARISON: No comparisons FINDINGS: A single gestational sac is seen within the uterus. Within the sac is a single fetus with crown-rump length measuring 7.4 cm corresponding to 13 weeks 3 days gestational age. SNEHAL 05/12/2018. Cardiac activity is normal measuring 161 BPM. Placenta is anterior, grade 0. No evidence of placental abruption or placenta previa. No perigestatio nal bleed. Maternal adnexa showed no worrisome finding. IMPRESSION: Single live early intrauterine gestation as detailed above.
== END 2017-11-07 23:30 | disposition home or self-care (01) ==
LOC: ER 21:07
DX: O20.0 Threatened abortion (principal); Z3A.00 Weeks of gestation of pregnancy not specified; Z88.8 Allergy status to other drugs, medicaments and biological substances
CPT/HCPCS: 36415; 76801; 80048; 81003; 81015; 81025; 84702; 85025; 86900; 86901; 99284

== ENCOUNTER 2017-11-21 13:21 | Emergency (ER) | payer OTHER ==
[2017-11-21 14:02] LABS: Absolute Lymphocytes (CBC) 1.6 K/uL (0.7-4.9); Absolute Monocytes 0.5 K/uL (0.1-1.3); Absolute Neutrophil 6.8 K/uL (1.8-8.0); Basophils % 0.5 % (0-1.3); Eosinophils % 1.2 % (0-4.4); Hematocrit 29.9 % (36.0-45.0); Lymphocytes % 17.7 % (15.3-44.8); MCV 83.8 fL (80-100); MPV 8.4 fL (7.6-11.3); Monocytes % 5.7 % (3.3-12.3); RBC Red Blood Cell Count 3.57 M/uL (3.86-4.86)
[2017-11-21 14:23] LABS: ALT/SGPT 19 U/L (12-78); AST/SGOT 17 U/L (15-37); Albumin 2.8 g/dL (3.4-5.0); Alkaline Phosphatase 58 U/L (45-117); BUN Blood Urea Nitrogen 7 mg/dL (7-18); Bicarbonate 26 mmol/L (21-32); Bilirubin Total 0.9 mg/dL (0.2-1.0); Glucose Level 85 mg/dL (74-106); Magnesium 1.9 mg/dL (1.8-2.4); Potassium 3.4 mmol/L (3.5-5.1); Protein, Total 6.4 g/dL (6.4-8.2); Sodium Level 140 mmol/L (136-145)
[2017-11-21] MEDS ORDERED: ACETAMINOPHEN 325 MG TABLET ONE (14:40)
--- NOTE | 2017-11-21 14:51 | EDPHYS ---
Physician Documentation [facility] Name: Angela Trinidad Age: 27 yrs Sex: Female : 1990 Arrival Date: 11/21/2017 Time: 13:23 Bed 7 Private MD: ED Physician Joesph Kong HPI: 11/21 13:27 This 27 yrs old Female presents to ER via Unassigned with complaints of ps1 seizure like activity. 13:27 called to vehicle outside of the ED. Patient having generalized shaking and not ps1 responding to questions. This appeared intentional and c/w PNES. Patient was brought to room and confronted patients behavior which she ceased and started speaking in full sentences and demonstrated no AMS. She is [address] Morfin in [place]. She is alert and oriented at this time, no post ictal phase. . 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 - Social history:: Smoking status: Patient uses tobacco products, smokes one-half pack cigarettes per day. - Ebola Screening: : No symptoms or risks identified at this time. ROS: 13:27 Unable to obtain ROS due to patient being uncooperative. ps1 Exam: 13:27 Constitutional: This is a well developed, well nourished patient who is awake, alert, ps1 and in no acute distress. Head/Face: Normocephalic, atraumatic. Chest/axilla: Normal chest wall appearance and motion. Nontender with no deformity. No lesions are appreciated. Cardiovascular: Regular rate and rhythm. No gallops, murmurs, or rubs. Normal PMI, no JVD. No pulse deficits. Respiratory: Lungs have equal breath sounds bilaterally, clear to auscultation and percussion. No rales, rhonchi or wheezes noted. No increased work of breathing, no retractions or nasal flaring. Abdomen/GI: Soft, non-tender, with normal bowel sounds. No distension or tympany. No guarding or rebound. No evidence of tenderness throughout. Skin: Warm, dry with normal turgor. Normal color with no rashes, no lesions, and no evidence of cellulitis. MS/ Extremity: Pulses equal, no cyanosis. Neurovascular intact. Full, normal range of motion. 13:27 Neuro: patient without typical seizure movements. No gaze preference, crossing midline. No figure four pointing and responded to direction. . Vital Signs: 13:30 BP 98 / 57; Pulse 77; Resp 14; Temp 99.1; Pulse Ox 97% ; Weight 57.15 kg; Height 5 ft. sv 0 in. (152.40 cm); Pain 5/10; 14:32 BP 93 / 70; Pulse 80; Resp 16; Pulse Ox 98% ; sv 15:00 BP 108 / 73; Pulse 77; Resp 16; Pulse Ox 99% ; sv 13:30 Body Mass Index 24.61 (57.15 kg, 152.40 cm) sv MDM: 13:27 Data reviewed: vital signs, nurses notes. ps1 13:33 Patient medically screened. ps1 14:45 Counseling: I had a detailed discussion with the patient and/or guardian regarding: the ps1 historical points, exam findings, and any diagnostic results supporting the discharge/admit diagnosis, lab results, the need for outpatient follow up, an OB/Gyne specialist. Special discussion: I discussed with the patient/guardian in detail that at this point there is no indication for admission to the hospital. It is understood, however, that if the symptoms persist or worsen the patient needs to return immediately for re-evaluation. 11/21 13:33 Order name: CBC with Diff; Complete Time: 14:13 ps1 11/21 13:33 Order name: CMP; Complete Time: 14:24 ps1 11/21 13:33 Order name: UA MICROSCOPIC ps1 11/21 13:33 Order name: Magnesium; Complete Time: 14:24 ps1 11/21 13:33 Order name: Lactate; Complete Time: 14:18 ps1 11/21 14:47 Order name: Urine Dipstick--Ancillary (enter results) bd 11/21 13:41 Order name: IV Start; Complete Time: 14:03 sv 11/21 13:41 Order name: Labs collected and sent; Complete Time: 14:03 sv 11/21 14:47 Order name: Urine --Ancillary (enter results) bd Administered Medications: 14:46 Drug: Tylenol 650 mg Route: PO; sv 14:58 Follow up: Response: No adverse reaction sv Disposition: 11/21/17 14:50 Discharged to Home. Impression: Psychogenic Non-Epileptic Seizure. - Condition is Stable. - Discharge Instructions: Nonepileptic Seizures. - Medication Reconciliation Form, Thank You Letter, Antibiotic Education, Prescription Opioid Use form. - Follow up: Private Physician; When: Upon discharge from the Emergency Department; Reason: Further diagnostic work-up, Recheck today's complaints, Re-evaluation by your physician. Follow up: Emergency Department; When: As needed; Reason: If symptoms return. - Problem is new. - Symptoms have improved. Signatures: Dispatcher [employer] Do Reilly RN RN Joesph Horn MD MD ps1 Corrections: (The following items were deleted from the chart) 15:01 14:50 11/21/2017 14:50 Discharged to Home. Impression: Psychogenic Non-Epileptic sv Seizure. Condition is Stable. Forms are Medication Reconciliation Form, Thank You Letter, Antibiotic Education, Prescription Opioid Use. Follow up: Private Physician; When: Upon discharge from the Emergency Department; Reason: Further diagnostic work-up, Recheck today's complaints, Re-evaluation by your physician. Follow up: Emergency Department; When: As needed; Reason: If symptoms return. Problem is new. Symptoms have improved. ps1
--- NOTE | 2017-11-21 14:51 | ER ---
Nurse's Notes [facility] Emergency Department Name: Angela Trinidad Age: 27 yrs Sex: Female : 1990 Arrival Date: 11/21/2017 Time: 13:23 Bed 7 Private MD: Diagnosis: Psychogenic Non-Epileptic Seizure Presentation: 11/21 13:22 Presenting complaint: Patient states: Pt was unresponsive when brought back by Carrie CODY sv by wheelchair. Pt was able to do minimal transfer from the wheelchair to the stretcher. Pt taken out of her shirt to get changed and connected to the monitor and pt was more alert and talking. Pt stated lower abd pain and that she was 3 months . Pt reports hx of seizures but takes no medications. Transition of care: patient was not received from another setting of care. Onset of symptoms was November 21, 2017. Risk Assessment: Do you want to hurt yourself or someone else? Patient reports no desire to harm self or others. Initial Sepsis Screen: Does the patient meet any 2 criteria? No. Patient's initial sepsis screen is negative. Does the patient have a suspected source of infection? No. Patient's initial sepsis screen is negative. Care prior to arrival: None. 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 - Social history:: Smoking status: Patient uses tobacco products, smokes one-half pack cigarettes per day. - Ebola Screening: : No symptoms or risks identified at this time. Screenin:40 Abuse screen: Denies threats or abuse. Denies injuries from another. Nutritional sv screening: No deficits noted. Tuberculosis screening: No symptoms or risk factors identified. Fall Risk None identified. Assessment: 13:50 General: Appears in no apparent distress. uncomfortable, Behavior is calm, cooperative, sv appropriate for age. Pain: Complains of pain in right lower quadrant and left lower quadrant Pain currently is 5 out of 10 on a pain scale. Quality of pain is described as crampy, Is intermittent. Neuro: Level of Consciousness is awake, alert, obeys commands, Oriented to person, place, time, situation, Moves all extremities. Full function Speech is normal. Cardiovascular: Patient's skin is warm and dry. Pulses are 3+ in right radial artery and left radial artery Rhythm is sinus rhythm. Respiratory: Respiratory effort is even, unlabored, Respiratory pattern is regular, symmetrical. GI: Abdomen is round Abd is soft X 4 quads Abdomen is tender to palpation in right lower quadrant and left lower quadrant. Derm: Skin is normal. Musculoskeletal: Range of motion: intact in all extremities. 14:37 Reassessment: Patient appears in no apparent distress at this time. No changes from sv previously documented assessment. Patient and/or family updated on plan of care and expected duration. Pain level reassessed. Patient is alert, oriented x 3, equal unlabored respirations, skin warm/dry/pink. 14:59 Reassessment: Patient appears in no apparent distress at this time. No changes from sv previously documented assessment. Patient and/or family updated on plan of care and expected duration. Pain level reassessed. Patient is alert, oriented x 3, equal unlabored respirations, skin warm/dry/pink. Vital Signs: 13:30 BP 98 / 57; Pulse 77; Resp 14; Temp 99.1; Pulse Ox 97% ; Weight 57.15 kg; Height 5 ft. sv 0 in. (152.40 cm); Pain 5/10; 14:32 BP 93 / 70; Pulse 80; Resp 16; Pulse Ox 98% ; sv 15:00 BP 108 / 73; Pulse 77; Resp 16; Pulse Ox 99% ; sv 13:30 Body Mass Index 24.61 (57.15 kg, 152.40 cm) sv ED Course: 13:23 Patient arrived in ED. iw 13:26 Joesph Kong MD is Attending Physician. ps1 13:29 Do Condon, ESCOBAR is Primary Nurse. sv 13:30 Patient has correct armband on for positive identification. Placed in gown. Bed in low sv position. Call light in reach. Side rails up X2. air sampling and monitoring on. Pulse ox on. NIBP on. Door closed. Head of bed elevated. 13:37 Triage completed. sv 13:40 Arm band placed on right wrist. sv 13:55 Initial lab(s) drawn, by me, sent to lab. Inserted saline lock: 20 gauge in right sv antecubital area, using aseptic technique. Blood collected. Flushed right antecubital with 5 ml normal saline. 15:01 No provider procedures requiring assistance completed. IV discontinued, intact, sv bleeding controlled, No redness/swelling at site. Pressure dressing applied. Administered Medications: 14:46 Drug: Tylenol 650 mg Route: PO; sv 14:58 Follow up: Response: No adverse reaction sv Outcome: 14:50 Discharge ordered by . ps1 15:00 Discharged to home via wheelchair, with family, Pt sent up to L\T\D for evaluation sv 15:00 Condition: stable 15:00 Discharge instructions given to patient, Instructed on discharge instructions, follow up and referral plans. Demonstrated understanding of instructions, follow-up care. 15:01 Patient left the ED. sv Signatures: Do Condon RN RN sv Williams, Irene, RN RN iw Joesph Kong MD MD ps1
[2017-11-21 15:01] LABS: Urine Blood TRACE (NEG); Urine Glucose NEGATIVE (NEG); Urine Protein NEGATIVE (NEG)
[2017-11-21 15:01] LABS: Urine Bacteria 20-50 /HPF (<20); Urine Culture Reflex Order NOT NEEDED; Urine Mucus 3+ /HPF (NONE SEEN)
[2017-11-21 15:07] VITALS: TEMP 99.1
[2017-11-21 15:09] VITALS: BP 108/73; O2SAT 99
== END 2017-11-21 15:01 | disposition home or self-care (01) ==
LOC: ER 13:21
DX: G40.409 Other generalized epilepsy and epileptic syndromes, not intractable, without status epilepticus (principal); I95.9 Hypotension, unspecified; F17.210 Nicotine dependence, cigarettes, uncomplicated; Z88.8 Allergy status to other drugs, medicaments and biological substances
CPT/HCPCS: 36415; 80053; 81003; 81015; 81025; 83605; 83735; 85025; 99284

== ENCOUNTER 2020-11-25 16:01 | Emergency (ER) | payer OTHER, SELFPAY ==
--- OUTSIDE RECORDS SUMMARY | 2020-11-25 16:04 | XMS REPORT | Continuity of Care Document ---
:[address] [facility] t Address [address] [place] [address] Care Team Providers Name Role Phone PCP Primary Care Physician Unavailable Donnie GERONIMOP Attending Clinician Doctor Unassigned, Name Attending Clinician Unavailable Earnest HEADLEY, Erick Attending Clinician Payers Payer Name Policy Type Policy Number Effective Date Expiration Date S ource Advance Directives Directive Decision Effective Date Termination Date Comments Sour ce Yes N/A [facility] Problems Condition Condition Condition Status Onset Resolution Last Treating Co mments Source Name Details Category Date Date Treatment Clinician Date Problem Condition [facility] Allergies, Adverse Reactions, Alerts Allergy Allergy Status Severity Reaction(s) Onset Inactive Treating Comm ents Source Name Type Date Date Clinician dicyclom DA Active [place] 2020- [facility] [place] 00:00: [address] dicyclom DA Active [place] [facility] 3[facility]05 [place] 00:00: [address] No Known DA Active U 2021-0 [facility] 1[facility] [place] 00:[place]: [facility] No Known DA Active U 2019- [facility] Allergie 2-03 [place] 00:[place]: [facility] No Known DA Active U 2018- [facility] 1[facility] [place] [facility] No Known DA Active U 2014- [facility] 0-01 [place] 00:[place]: [facility] Social History Social Habit Start Date Stop Date Quantity Comments Source Sex Assigned At 1990 [address] 00:00:00 00:00:00 [place] Smoking Status Start Date Stop Date Source Unknown if ever smoked [facility] Medications Ordered Filled Start Stop Current Ordering Indication Dosage Frequency Signature Comments Components Source Medication Medication Date Date Medication? Clinician (SIG) Name Name Acetaminoph No 1 CARMEN U en/Codeine 8-[address] Phosphate 11:38: Elizabe (Tylenol 00 #3) 1 Each TAB Amoxicillin No 500mg GIULIANA TU (Amoxil) 8-[address] 500 Mg CAP 11:38: Elizabe 00 th Ibuprofen 0 No 600mg CHRISTU (Motrin) 8-[address] 600 Mg TAB 11:38: Elizabe 00 th Vital Signs Vital Name Observation Time Observation Value Comments Source Body Temperature 2019-12-11 11:48:00 97.9 [degF] [facility] [place] Heart Rate 2019-12-11 11:48:00 94 /min [facility] [place] Respiratory rate 2019-12-11 11:48:00 18 /min [facility] [place] BP Systolic 2019-12-11 11:48:00 87 mm[Hg] [facility] [place] BP Diastolic 2019-12-11 11:48:00 61 mm[Hg] [facility] [place] Weight 2019-12-11 11:05:00 124.56 [lb_av] [facility] [place] BMI (Body Mass 2019-12-11 11:05:00 25.2 kg/m2 [facility] St. Index) [place] Heart Rate 2019-12-11 11:03:00 94 /min [facility] [place] Respiratory rate 2019-12-11 11:03:00 18 /min [facility] [place] BP Systolic 2019-12-11 11:03:00 87 mm[Hg] [facility] [place] BP Diastolic 2019-12-11 11:03:00 61 mm[Hg] [facility] [place] Procedures This patient has no known procedures. Plan of Care Planned Activity Planned Date Details Comments Source Goal Patient referral [code GIULIANA PARKER [place] = [id number] ] Instructions Dental Pain (DC) [facility] St . [place] Encounters Start End Encounter Admission Attending Care Care Encounter Source Date/Time Date/Time Type Type Clinicians Facility Department ID 2020-11-11 2020-11-11 Emergency [facility] [id number] [id number] 11:57:00 14:18:00 [place] [id number] [place] [id number] [place] [id number] 2020-11-11 2020-11-11 Orders Doctor ED 1.2.840.114 [id number] 00:00:00 00:00:00 Only Unassigned, SHERIDAN [id number] [place] [address]686 [id number] [id number] 2020-10-25 2020-10-25 Emergency [place], [facility] 1.2.840.114 [id number] 13:58:00 14:43:00 Trevor Villa [id number]2.686 [place] [id number] 2019-12-11 2019-12-11 Departed MILLI VEGA [id number] CHRISTU 11:17:00 11:54:[address] [facility] Amanda e Results Test Description Test Time Test Comments Results Result [facility] e Comments - XR TIBIA/FIBULA 2020-08-11 2 V LT 18:19:00 [facility] : 1990 Sex: F FAX: ShainaJeffrey HEADLEY [phone] [place]: St: REG Patient Name: JENI ROBERT Unit No: [id number] EXAMS: CPT CODE: [id number] XR TIBIA/FIBULA 2 [place] [address] Location code:C3 EXAM: - XR ANKLE 3 + V LT, - XR FOOT 3 + V LT, - XR TIBIA/FIBULA 2 V LT HISTORY: 29 years -old Female with fall diffuse pain lateral COMPARISON: None TECHNIQUE: AP, lateral, and oblique views of the left foot and ankle are submitted. AP and lateral views of the left tibia and fibula are also submitted. FINDINGS: BONES: No evidence of acute fracture or dislocation. No evidence of a bony lesion. JOINTS:The joint spaces are maintained. SOFT TISSUES: The soft tissues are unremarkable in appearance. IMPRESSION: No evidence of acute fracture or dislocation. at 1819 Reported and signed by: Dominick Young M.D. CC: Jeffrey Merritt Dictated Date/Time: 08/11/2020 (1818)Technologist: Yash Donato Transcribed Date/Time: 08/11/2020 (1818) By: [email or web address] Orig Print D/T: S: 08/11/2020 (1821) [facility] Mattie NAME: JENI ROBERT [address] [place] [address] PHYS: HUVAD - Huval,Jeffrey REAL ESTATE TEACHERHonorhealth Rehabilitation HospitalChignik, [place] [address] : 1990 AGE: 29 SEX: F LOC: ANA PHONE #: [phone] EXAM DATE: 08/11/2020 STATUS: REG ER FAX #: [phone] RAD NO: DC Dt: PAGE 1 Signed Report - XR FOOT 3 + V LT 2020-08-11 18:19:00 [facility] : 1990 Sex: F FAX: Jeffrey Merritt [employer] TE[employer]ER [phone] [place]: E St: REG Patient Name: JENI ROBERT Unit No: [id number] EXAMS: CPT CODE: [id number] XR FOOT 3 + V LT [address] Location code:C3 EXAM: - XR ANKLE 3 + V LT, - XR FOOT 3 + V LT, - XR TIBIA/FIBULA 2 V LT HISTORY: 29 years -old Female with fall diffuse pain lateral COMPARISON: None TECHNIQUE: AP, lateral, and oblique views of the left foot and ankle are submitted. AP and lateral views of the left tibia and fibula are also submitted. FINDINGS: BONES: No evidence of acute fracture or dislocation. No evidence of a bony lesion. JOINTS:The joint spaces are maintained. SOFT TISSUES: The soft tissues are unremarkable in appearance. IMPRESSION: No evidence of acute fracture or dislocation. at 1819 Reported and signed by: Dominick Young M.D. CC: Jeffrey Merritt Dictated Date/Time: 08/11/2020 (1818)Technologist: Yash Donato Transcribed Date/Time: 08/11/2020 (1818) By: [email or web address] Orig Print D/T: S: 08/11/2020 (1821) [facility] [place] NAME: JENI ROBERT [address] [place] [address] PHYS: Jeffrey [place], [place] [address] : 1990 AGE: 29 SEX: F LOC: ANA PHONE #: [phone] EXAM DATE: 08/11/2020 STATUS: REG ER FAX #: [phone] RAD NO: DC Dt: PAGE 1 Signed Report - XR ANKLE 3 + V 2020-08-11 LT 18:19:00 [facility] : 1990 Sex: F FAX: Jeffrey Merritt [phone] [place]: E St: REG Patient Name: JENI ROBERT Unit No: [id number] EXAMS: CPT CODE: [id number] XR ANKLE 3 + V LT [address] Location code:C3 EXAM: - XR ANKLE 3 + V LT, - XR FOOT 3 + V LT, - XR TIBIA/FIBULA 2 V LT HISTORY: 29 years -old Female with fall diffuse pain lateral COMPARISON: None TECHNIQUE: AP, lateral, and oblique views of the left foot and ankle are submitted. AP and lateral views of the left tibia and fibula are also submitted. FINDINGS: BONES: No evidence of acute fracture or dislocation. No evidence of a bony lesion. JOINTS:The joint spaces are maintained. SOFT TISSUES: The soft tissues are unremarkable in appearance. IMPRESSION: No evidence of acute fracture or dislocation. at 1819 Reported and signed by: Dominick Young M.D. CC: Jeffrey Merritt Dictated Date/Time: 08/11/2020 (1818)Technologist: Yash Donato Transcribed Date/Time: 08/11/2020 (1818) By: [email or web address] Orig Print D/T: S: 08/11/2020 (1821) RAMESH Phelps NAME: JENI ROBERT [address] [place] [address] PHYS: ALESSIA - Jeffrey [place], [place] [address] : 1990 AGE: 29 SEX: F LOC: ANA PHONE #: [phone] EXAM DATE: 08/11/2020 STATUS: REG ER FAX #: [phone] RAD NO: DC Dt: PAGE 1 Signed Report - CT L-SPINE W/O 2020-07-05 CONTRAST 10:03:00 [facility] : 1990 Sex: F Patient Name: JENI ROBERT Unit No: [id number] Report Has Been Amended EXAMS: CPT CODE: [id number] CT L-SPINE W/O CONTRAST 62954 Addendum - 07/05/2020 SIGNED 07/05/2020 ADDENDUM: [id number] CT/CTLSPINEWO Additional History: Lower back pain at 1003 Reported and signed by: Aries Katz DO Dictated Date/Time: 07/05/2020 (1003) Report EXAM: - CT T-SPINE W/O CONTRAST, - CT L-SPINE W/O CONTRAST CLINICAL INDICATION: fall COMPARISON: CT abdomen pelvis 05/14/2020 LOCATION: H65 TECHNIQUE: Multiple axial noncontrast CT images of the thoracic and lumbar spine were obtained in bone and soft tissue windows. Axially acquired data were reformatted in sagittal and coronal planes for further analysis. This examination was performed according to our departmental dose optimization program, which includes automated exposure control, adjustment of the mA and/or kV according to patient size, and/or use of iterative reconstruction technique. FINDINGS: Alignment: There is mild straightening of the thoracic kyphosis and lumbar lordosis. There is S-shaped scoliotic curvature throughout the spine with thoracic dextroscoliosis and lumbar levoscoliosis. No significant listhesis noted throughout. Vertebral bodies: Normal height. No compression deformity. Mild diffuse osteopenia. Disc spaces: No significant disc height loss or endplate degenerative changes. Spinal Canal: Unremarkable. No significant neural foraminal narrowing or lateral recess stenosis throughout the thoracic and lumbar spine. Other: Visualized mediastinum is unremarkable. The upper abdomen demonstrates punctate bilateral nonobstructing kidney stones, but no acute findings. Visualized dependent portions of the bilateral lungs appear normal. [facility] Mattie NAME: JENI ROBERT [address] [place] [address] PHYS: Davey Davis NP [place] [address] : 1990 AGE: 29 SEX: F LOC: B.ERS PHONE #: [phone] EXAM DATE: 06/27/2020 STATUS: DEP ER FAX #: [phone] RAD #: D/C DT PAGE 1 Signed Report (CONTINUED) Patient Name: JENI ROBERT Unit No: [id number] Report Has Been Amended EXAMS: CPT CODE: [id number] CT L-SPINE W/O CONTRAST 50286 <Continued> IMPRESSION: No acute osseous injury or traumatic malalignment throughout the thoracolumbar spine. Mild S-shaped scoliosis. at 2046 Reported and signed by: Aries Katz DO CC: Davey Andrea NP Dictated Date/Time: 06/27/2020 (2046) Technologist: Aster Jimenze CTDI: 13.92 DLP: 686.07 Trnscrpt: 06/27/2020 (2046) [email or web address] RAMESH Phelps NAME: J[address] PHYS: Davey Davis NP [place] [address] : 1990 AGE: 29 SEX: F LOC: AnaidERS PHONE #: [phone] EXAM DATE: 06/27/2020 STATUS: DEP ER FAX #: [phone] RAD #: D/C DT PAGE 2 Signed Report Patient Name: JENI ROBERT Unit No: [id number] Report Has Been Amended EXAMS: CPT CODE: [id number] CT L-SPINE W/O CONTRAST 00085 <Continued> Orig Print D/T: S: 06/27/2020 (2050) RAMESH Phelps NAME: J[address]OB[address] PHYS: Davey Davis NP [place] [address] : 1990 AGE: 29 SEX: F LOC: B.ERS PHONE #: [phone] EXAM DATE: 06/27/2020 STATUS: DEP ER FAX #: [phone] RAD #: D/C DT PAGE 3 Signed Report - CT T-SPINE W/O 2020-07-05 CONTRAST 10:03:00 [facility] : 1990 Sex: F Patient Name: JENI ROBERT Unit No: [id number] Report Has Been Amended EXAMS: CPT CODE: [id number] CT T-SPINE W/O CONTRAST 94592 Addendum - 07/05/2020 SIGNED 07/05/2020 ADDENDUM: [id number] CT/CTTSPINEWO Additional History: Lower back pain at 1003 Reported and signed by: Aries Katz DO Dictated Date/Time: 07/05/2020 (1003) Report EXAM: - CT T-SPINE W/O CONTRAST, - CT L-SPINE W/O CONTRAST CLINICAL INDICATION: fall COMPARISON: CT abdomen pelvis 05/14/2020 LOCATION: [facility] TECHNIQUE: Multiple axial noncontrast CT images of the thoracic and lumbar spine were obtained in bone and soft tissue windows. Axially acquired data were reformatted in sagittal and coronal planes for further analysis. This examination was performed according to our departmental dose optimization program, which includes automated exposure control, adjustment of the mA and/or kV according to patient size, and/or use of iterative reconstruction technique. FINDINGS: Alignment: There is mild straightening of the thoracic kyphosis and lumbar lordosis. There is S-shaped scoliotic curvature throughout the spine with thoracic dextroscoliosis and lumbar levoscoliosis. No significant listhesis noted throughout. Vertebral bodies: Normal height. No compression deformity. Mild diffuse osteopenia. Disc spaces: No significant disc height loss or endplate degenerative changes. Spinal Canal: Unremarkable. No significant neural foraminal narrowing or lateral recess stenosis throughout the thoracic and lumbar spine. Other: Visualized mediastinum is unremarkable. The upper abdomen demonstrates punctate bilateral nonobstructing kidney stones, but no acute findings. Visualized dependent portions of the bilateral lungs appear normal. RAMESH Phelps NAME: JENI ROBERT [address] [place] [address] PHYS: SHONDAWinDavey Soler [place] [address] : 1990 AGE: 29 SEX: F LOC: [employer] PHONE #: [phone] EXAM DATE: 06/27/2020 STATUS: DEP ER FAX #: [phone] RAD #: D/C DT PAGE 1 Signed Report (CONTINUED) Patient Name: JENI ROBERT Unit No: [id number] Report Has Been Amended EXAMS: CPT CODE: [id number] CT T-SPINE W/O CONTRAST 35776 <Continued> IMPRESSION: No acute osseous injury or traumatic malalignment throughout the thoracolumbar spine. Mild S-shaped scoliosis. at 2046 Reported and signed by: Aries Katz DO CC: Davey Andrea NP Dictated Date/Time: 06/27/2020 (2046) Technologist: Aster Jimenez CTDI: 13.92 DLP: 686.07 Trnscrpt: 06/27/2020 (2046) [email or web address] [facility] NAME: J[address] PHYS: Davey Davis NP [place] [address] : 1990 AGE: 29 SEX: F LOC: Aptible PHONE #: [phone] EXAM DATE: 06/27/2020 STATUS: DEP ER FAX #: [phone] RAD #: D/C DT PAGE 2 Signed Report Patient Name: JENI ROBERT Unit No: [id number] Report Has Been Amended EXAMS: CPT CODE: [id number] CT T-SPINE W/O CONTRAST 64323 <Continued> Orig Print D/T: S: 06/27/2020 (2050) [facility] Mattie NAME: JENI ROBERT [address] [place] [address] PHYS: SHONDAWinDavey Soler Sh[place]ar [place] [address] : 1990 AGE: 29 SEX: F LOC: ANA PHONE #: [phone] EXAM DATE: 06/27/2020 STATUS: DEP ER FAX #: [phone] RAD #: D/C DT PAGE 3 Signed Report - CT L-SPINE W/O 2020-06-27 CONTRAST 20:47:00 [facility] : 1990 Sex: F Patient Name: JENI ROBERT Unit No: [id number] EXAMS: CPT CODE: [id number] CT L-SPINE W/O CONTRAST 91673 EXAM: - CT T-SPINE W/O CONTRAST, - CT L-SPINE W/O CONTRAST CLINICAL INDICATION: fall COMPARISON: CT abdomen pelvis 05/14/2020 LOCATION: [facility] TECHNIQUE: Multiple axial noncontrast CT images of the thoracic and lumbar spine were obtained in bone and soft tissue windows. Axially acquired data were reformatted in sagittal and coronal planes for further analysis. This examination was performed according to our departmental dose optimization program, which includes automated exposure control, adjustment of the mA and/or kV according to patient size, and/or use of iterative reconstruction technique. FINDINGS: Alignment: There is mild straightening of the thoracic kyphosis and lumbar lordosis. There is S-shaped scoliotic curvature throughout the spine with thoracic dextroscoliosis and lumbar levoscoliosis. No significant listhesis noted throughout. Vertebral bodies: Normal height. No compression deformity. Mild diffuse osteopenia. Disc spaces: No significant disc height loss or endplate degenerative changes. Spinal Canal: Unremarkable. No significant neural foraminal narrowing or lateral recess stenosis throughout the thoracic and lumbar spine. Other: Visualized mediastinum is unremarkable. The upper abdomen demonstrates punctate bilateral nonobstructing kidney stones, but no acute findings. Visualized dependent portions of the bilateral lungs appear normal. IMPRESSION: No acute osseous injury or traumatic malalignment throughout the thoracolumbar spine. Mild S-shaped scoliosis. at 2046 Reported and signed by: Aries Katz DO CC: Davey Andrea NP Dictated Date/Time: 06/27/2020 (2046) Technologist: Aster Jimenez CTDI: 13.92 DLP: 686.07 Trnscrpt: 06/27/2020 (2046) [email or web address] [facility] Mattie NAME: [facility] PHYS: Davey Davis NP [place] [address] : 1990 AGE: 29 SEX: F LOC: B.ERS PHONE #: [phone] EXAM DATE: 06/27/2020 STATUS: REG ER FAX #: [phone] RAD #: D/C DT PAGE 1 Signed Report Patient Name: JENI ROBERT Unit No: [id number] EXAMS: CPT CODE: [id number] CT L-SPINE W/O CONTRAST 73999 <Continued> Orig Print D/T: S: 06/27/2020 (2050) RAMESH Phelps NAME: JAKOB[address] PHYS: Davey Davis NP [place] [address] : 1990 AGE: 29 SEX: F LOC: B.ERS PHONE #: [phone] EXAM DATE: 06/27/2020 STATUS: REG ER FAX #: [phone] RAD #: D/C DT PAGE 2 Signed Report - CT T-SPINE W/O 2020-06-27 CONTRAST 20:47:00 [facility] : 1990 Sex: F Patient Name: JENI ROBERT Unit No: [id number] EXAMS: CPT CODE: [id number] CT T-SPINE W/O CONTRAST 72080 EXAM: - CT T-SPINE W/O CONTRAST, - CT L-SPINE W/O CONTRAST CLINICAL INDICATION: fall COMPARISON: CT abdomen pelvis 05/14/2020 LOCATION: [facility] TECHNIQUE: Multiple axial noncontrast CT images of the thoracic and lumbar spine were obtained in bone and soft tissue windows. Axially acquired data were reformatted in sagittal and coronal planes for further analysis. This examination was performed according to our departmental dose optimization program, which includes automated exposure control, adjustment of the mA and/or kV according to patient size, and/or use of iterative reconstruction technique. FINDINGS: Alignment: There is mild straightening of the thoracic kyphosis and lumbar lordosis. There is S-shaped scoliotic curvature throughout the spine with thoracic dextroscoliosis and lumbar levoscoliosis. No significant listhesis noted throughout. Vertebral bodies: Normal height. No compression deformity. Mild diffuse osteopenia. Disc spaces: No significant disc height loss or endplate degenerative changes. Spinal Canal: Unremarkable. No significant neural foraminal narrowing or lateral recess stenosis throughout the thoracic and lumbar spine. Other: Visualized mediastinum is unremarkable. The upper abdomen demonstrates punctate bilateral nonobstructing kidney stones, but no acute findings. Visualized dependent portions of the bilateral lungs appear normal. IMPRESSION: No acute osseous injury or traumatic malalignment throughout the thoracolumbar spine. Mild S-shaped scoliosis. at 2047 Reported and signed by: Aries Katz DO CC: Davey Andrea SALES REPRESENTATIVE [employer]UCATION [employer]RSES Dictated Date/Time: 06/27/2020 (2046) Technologist: Aster Jimenez CTDI: 13.92 DLP: 686.07 Trnscrpt: 06/27/2020 (2046) [email or web address] RAMESH Phelps NAME: JENI ROBERT [address] [place] [address] PHYS: SHONDAWinDavey Soler NP [place] [address] : 1990 AGE: 29 SEX: F LOC: B.ERS PHONE #: [phone] EXAM DATE: 06/27/2020 STATUS: REG ER FAX #: [phone] RAD #: D/C DT PAGE 1 Signed Report Patient Name: JENI ROBERT Unit No: [id number] EXAMS: CPT CODE: [id number] CT T-SPINE W/O CONTRAST 91724 <Continued> Orig Print D/T: S: 06/27/2020 (2050) RAMESH Bourgeoisroe NAME: J[address] PHYS: Davey Davis NP [place] [address] : 1990 AGE: 29 SEX: F LOC: B.ERS PHONE #: [phone] EXAM DATE: 06/27/2020 STATUS: REG ER FAX #: [phone] RAD #: D/C DT PAGE 2 Signed Report - XR RIBS UNI 2020-06-27 W/CXR 3+V RT 19:43:00 [facility]ENI ROEBRT : 1990 Sex: F FAX: Davey Alba NP [phone] [place]: St: PRE Patient Name: JENI ROBERT Unit No: [id number] EXAMS: CPT CODE: [id number] XR RIBS UNI W/CXR 3+[place] [address] EXAM: - XR RIBS UNI W/CXR 3+V RT CLINICAL HISTORY: fall COMPARISON: None available. TECHNIQUE: Frontal view of the chest; AP and lateral views bilateral ribs. LOCATION: H65 FINDINGS: Bones: No acute displaced rib fracture identified. Chest: The cardiac mediastinal silhouette is normal. No suspicious airspace opacities. Soft tissues: Unremarkable. IMPRESSION: No acute displaced rib fractures. No acute cardiopulmonary process. at 1943 Reported and signed by: Aries Katz DO CC: Davey Andrea NP Dictated Date/Time: 06/27/2020 (1942)Technologist: Emilia Johnson Transcribed Date/Time: 06/27/2020 (1942) By: [email or web address] Orig Print D/T: S: 06/27/2020 (1946) RAMESH Phelps NAME: JENI ROBERT [address] [place] [address] PHYS: - Davey Andrea NP, [place] [address] : 1990 AGE: 29 SEX: F LOC: ANA PHONE #: [phone] EXAM DATE: 06/27/2020 STATUS: PRE ER FAX #: [phone] RAD NO: DC Dt: PAGE 1 Signed Report - XR CHEST 1 V 2020-05-29 10:47:00 [facility] : 1990 Sex: F FAX: Rahul Guadalupe MD [phone] [place]: E St: PRE Patient Name: JENI ROBERT Unit No: [id number] EXAMS: CPT CODE: [id number] XR CHEST 1 V 87019 Site ID: [id number] HISTORY: Chest pain FINDINGS: The lungs are clear and normally expanded. The heart and pulmonary vasculature is normal. Osseous structures are unremarkable. IMPRESSION: Negative chest X-ray. at 1047 Reported and signed by: Raul Queen M.D. CC: Rahul Linares MD Dictated Date/Time: 05/29/2020 (0086)Technologist: Ira Romano Transcribed Date/Time: 05/29/2020 (1047) By: [email or web address] Orig Print D/T: S: 05/29/2020 (6067) MARBELLA [place] NAME: JENI ROBERT [address] [place] [address] PHYS: Rahul Vergara MD, [place] [address] : 1990 AGE: 29 SEX: F LOC: B.ERS PHONE #: [phone] EXAM DATE: 05/29/2020 STATUS: PRE ER FAX #: [phone] RAD NO: DC Dt: PAGE 1 Signed Report - CT ABD PELVIS 2020-05-14 W/O CONT 02:26:00 [facility] : 1990 Sex: F Patient Name: JENI ROBERT Unit No: [id number] EXAMS: CPT CODE: [id number] CT ABD PELVIS W/O CONT 42355 AFTER HOURS SERVICE ON: 05/14/2020 2:[address] Scan of the Abdomen and Pelvis Without Contrast Location Code M12 History: left sided abd pain Technique: Axial and reconstructed coronal scans were performed on a helical scanner pre oral and IV contrast. Study is limited secondary to lack of oral and IV contrast. One or more of the following dose reduction techniques were used: Automated exposure control, adjustment of the mA and/or kV according to patient size, and/or utilization of iterative reconstruction technique. Findings: LIVER: No significant findings. GALLBLADDER/BILIARY: Cholecystectomy. PANCREAS: No significant findings. SPLEEN: No significant findings. ADRENALS: No significant findings. KIDNEYS: There is a punctate 1 mm nonobstructing left interpolar renal calculus. There is no hydronephrosis in either kidney. BLADDER: No significant findings. GASTROINTESTINAL: No significant findings. The appendix is unremarkable. OTHER: Bilateral adnexal ligation clips are in place. Uterus is unremarkable. IMPRESSION: 1 mm nonobstructing left interpolar renal calculus. No other acute findings. Cholecystectomy. at 0226 Reported and signed by: Lam Araiza M.D. CC: Hector Cortez DO Dictated Date/Time: 05/14/2020 (022) Technologist: Kirsten Desir CTDI: 5.84 DLP: 273.56 Trnscrpt: 05/14/2020 (225) [email or web address] MARBELLAWarren Phelps NAME: JENI ROBERT [address] [place] [address] PHYS: PATRICE - Hector [place] [address] : 1990 AGE: 29 SEX: F LOC: [facility] PHONE #: [phone] EXAM DATE: 05/14/2020 STATUS: REG ER FAX #: [phone] RAD #: D/C DT PAGE 1 Signed Report Patient Name: JENI ROBERT Unit No: [id number] EXAMS: CPT CODE: [id number] CT ABD PELVIS W/O CONT 67547 <Continued> Orig Print D/T: S: 05/14/2020 (022) RAMESH Phelps NAME: [address] PHYS: PATRICE - [place] [address] : 1990 AGE: 29 SEX: F LOC: [facility] PHONE #: [phone] EXAM DATE: 05/14/2020 STATUS: REG ER FAX #: [phone] RAD #: D/C DT PAGE 2 Signed Report COMPREHENSIVE METABOLIC PANEL 2020-05-14 00:56:00 Test Item Value Reference Range Interpretation Comme nts SODIUM (test code = NA) 142.0 mmol/L 133-144 N POTASSIUM (test code = K) 3.7 mmol/L 3.5-5.1 N CHLORIDE (test code = CL) 108 mmol/L 95-105 H CARBON DIOXIDE (test code 30 mmol/L 21-32 N = CO2) ANION GAP (test code = 4.0 GAP calc 4.0-15.0 N GAP) GLUCOSE (test code = GLU) 86 MG/DL 70-110 N BLOOD UREA NITROGEN (test 19 MG/DL 7-18 H code = BUN) GLOMERULAR FILTRATION RATE 72 estGFR >60 T he estimated glomerular (test code = GFR) filtration rate is computed usingp atient race, age, sex, and serum creatinine. If any of theneeded data elements are missing the Laboratory can notcompute an estimation of t he glomerular filt ration rate.The GFR va lukelly units = ml/min/1.73 met er squared. EstimatedGFR v alues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
--- NOTE | 2020-11-25 20:07 | EDPHYS ---
Physician Documentation [facility] [place], [place] Name: Angela Trinidad Age: 30 yrs Sex: Female : 1990 Arrival Date: 11/25/2020 Time: 16:12 Bed Treatment Private MD: PERLITA Physician Santino Payne HPI: 11/25 20:04 This 30 yrs old Female presents to ER via Ambulatory with complaints of pm1 Difficulty Swallowing - Swollen Lymph, Headache. 20:04 The patient presents with sore throat. The patient describes throat pain as raw, pm1 scratchy. Onset: The symptoms/episode began/occurred this morning. Severity of symptoms: in the emergency department the symptoms are actually worse. Modifying factors: The symptoms are alleviated by nothing, the symptoms are aggravated by nothing, Patient's oral intake status: good. Associated signs and symptoms: Pertinent positives: cough, Pertinent negatives chest pain, fever, shortness of breath. The patient has not recently seen a physician. Patient presents to the ER with complaints of sore throat that started this morning upon waking. Patient also has complaints of cough and swollen lymph nodes. Historical: - Allergies: 18:00 Bentyl; aa5 - Home Meds: 21:25 Vitamin Oral [Active]; iw - PMHx: 18:00 Anemia; Anxiety; drug use when teenager; hypotension; Seizures; aa5 - PSHx: 18:00 section; Cholecystectomy; aa5 - Immunization history:: Client reports having NOT received the Covid vaccine. Flu vaccine is up to date. - Social history:: Smoking status: Patient denies any tobacco usage or history of. ROS: 20:04 Constitutional: Negative for fever, chills, and weight loss. pm1 20:04 Neck: Negative for injury, pain, and swelling, Cardiovascular: Negative for chest pain, palpitations, and edema. 20:04 Abdomen/GI: Negative for abdominal pain, nausea, vomiting, diarrhea, and constipation, Back: Negative for injury and pain, MS/Extremity: Negative for injury and deformity, Skin: Negative for injury, rash, and discoloration. 20:04 Neuro: Negative for headache, weakness, numbness, tingling, and seizure. 20:04 ENT: Positive for sore throat, Negative for ear pain. 20:04 Respiratory: Positive for cough, Negative for shortness of breath. 20:04 All other systems are negative. Exam: 20:04 Constitutional: This is a well developed, well nourished patient who is awake, alert, pm1 and in no acute distress. Head/Face: Normocephalic, atraumatic. 20:04 Back: No spinal tenderness. No costovertebral tenderness. Full range of motion. Skin: Warm, dry with normal turgor. Normal color with no rashes, no lesions, and no evidence of cellulitis. MS/ Extremity: Pulses equal, no cyanosis. Neurovascular intact. Full, normal range of motion. 20:04 ENT: Exam is negative for Posterior pharynx: Tonsils: bilaterally enlarged, with erythema, with exudate, no ulcerations, erythema, that is moderate, peritonsillar mass, is not appreciated. 20:04 Neck: Lymph nodes: lymphadenopathy is appreciated, anterior cervical nodes. 20:04 Cardiovascular: Exam negative for acute changes, Rate: normal, Rhythm: regular, Pulses: no pulse deficits are appreciated. 20:04 Respiratory: Exam negative for acute changes, respiratory distress, shortness of breath. 20:04 Neuro: Exam negative for acute changes, Orientation: is normal, Mentation: is normal, Motor: is normal, moves all fours. Vital Signs: 17:58 BP 93 / 71; Pulse 81; Resp 16 S; Temp 98.2(TE); Pulse Ox 100% on R/A; Weight 56.7 kg aa5 (R); Height 4 ft. 11 in. (149.86 cm) (R); 17:58 Body Mass Index 25.25 (56.70 kg, 149.86 cm) aa5 MDM: 18:19 Patient medically screened. [facility] 20:04 Data reviewed: vital signs. Data interpreted: Pulse oximetry: on room air is 100 %. pm1 Interpretation: normal. Counseling: I had a detailed discussion with the patient and/or guardian regarding: the historical points, exam findings, and any diagnostic results supporting the discharge/admit diagnosis, lab results, the need for outpatient follow up, Patient would like to be call fro flu and covid results. has been here since 3PM and would like to go home. 11/25 18: Order name: Flu; Complete Time: 20:06 aa 11/25 18:02 Order name: Strep; Complete Time: 19:59 aa 11/25 20:04 Order name: SARS-COV-2 RT PCR; Complete Time: 20:06 EDMS Administered Medications: 20:11 Drug: Tylenol 1000 mg Route: PO; iw 21:25 Follow up: Response: No adverse reaction iw Disposition: 11/26 07:07 Co-signature as Attending Physician, Santino Payne MD I agree with the assessment and sparkle plan of care. Disposition Summary: 11/25/20 20:06 Discharge Ordered Location: Home pm1 Problem: new pm1 Symptoms: have improved pm1 Condition: Stable pm1 Diagnosis - Streptococcal pharyngitis pm1 - Coronavirus infection, unspecified pm1 Followup: pm1 - With: Emergency Department - When: As needed - Reason: Worsening of condition Followup: pm1 - With: Private Physician - When: 2 - 3 days - Reason: Recheck today's complaints, Continuance of care, Re-evaluation by your physician Discharge Instructions: - Discharge Summary Sheet pm1 - Strep Throat, Adult pm1 - COVID-19 pm1 - Symptoms of Coronavirus - [facility] pm1 Forms: - Work release form iw - Medication Reconciliation Form pm1 - Thank You Letter pm1 - Antibiotic Education pm1 - Prescription Opioid Use pm1 Prescriptions: - Amoxicillin 500 mg Oral Capsule - take 1 capsule by ORAL route every 8 hours for 10 days; 30 tablet; Refills: 0, pm1 Product Selection Permitted Signatures: Dispatcher [employer] Santino Kim MD MD cha Williams, Irene, RN RN iw Tomasa Batista RN RN aa5 Brenton Abreu, TRACK LAYER HEAD-C TRACK LAYER HEAD-Cla1 Jagdeep Saba, KRISTIE PHONOGRAPH CARTRIDGE ASSEMBLER pm1 Corrections: (The following items were deleted from the chart) 11/25 19:11 18:02 CORONAVIRUS+LAB.BRZ ordered. EDMS EDMS
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
[2020-11-25] MEDS ORDERED: ACETAMINOPHEN 500 MG TAB ONE (20:30)
[2020-11-25 21:10] VITALS: BP 93/71; TEMP 98.2; O2SAT 100
== END 2020-11-25 20:19 | disposition home or self-care (01) ==
LOC: ER 16:01
DX: U07.1 COVID-19 (principal); J02.0 Streptococcal pharyngitis; Z91.048 Other nonmedicinal substance allergy status
CPT/HCPCS: 87081; 87804; 99283; U0003